=== PATIENT | male | born 1990 | race Caucasian/White ===

== ENCOUNTER 2022-11-19 08:28 | Emergency (ER) | payer MEDICAID ==
[~2022-11-19] VITALS: Ht 175.3 cm; Wt 190.0 kg
[2022-11-19 08:46] VITALS: BP 124/79
[2022-11-19] MEDS ORDERED: PRED20TA PO (09:14)
== END 2022-11-19 09:20 | disposition home or self-care (01) ==
LOC: ER 08:29
DX: L23.9 Allergic contact dermatitis, unspecified cause (principal); Z88.0 Allergy status to penicillin; Z79.899 Other long term (current) drug therapy
CPT/HCPCS: 99283